=== PATIENT | female | born 1985 | race Caucasian/White ===

== ENCOUNTER 2018-04-09 21:49 | Emergency (ER) | payer MEDICAID, SELFPAY ==
[2018-04-09 21:51] VITALS: BP 115/80; PULSE 77; RESP 15; TEMP 36.6; BMI 26.5
[2018-04-09] MEDS: Diphth,Pertuss(Acell),Tet Vac 0.5 ML Vial IM (23:25)
--- NOTE | 2018-04-10 00:46 | ED.VISSUMM ---
- ER Visit Summary Date of Service: 04/10/18 Chief Complaint: Lip laceration History of Present Illness: The patient is a 32 F presenting for evaluation secondary to a lip laceration. Patient was roller skating she suffered a fall and struck her face on the ground. No loss of consciousness. No numbness weakness visual changes nausea or vomiting. Patient is not on any sort of anticoagulants. Her tetanus status is unknown. Physical Examination: Primary survey: Airway is patent, breath sounds equal bilateral, central peripheral pulses 2+ and symmetric, GCS 15 out of 15. Vitals within normal limits. Secondary survey: General: Well-nourished well-developed no acute distress Head: Normocephalic atraumatic Eyes: PERRLA, EOMI ENT: TMs clear no hemotympanum no drainage, 1 cm laceration to the right lower lip that is on the external surface of the lip does not communicate with the mucosa and does not cross the vermilion border Neck: Nontender full range of motion, no step-offs noted Heart: Regular rate and rhythm no murmurs Lungs: Respirations nondistressed, lung sounds clear to auscultation bilaterally, chest nontender, normal chest excursion bilaterally Abdomen: Soft nontender nondistended normal bowel sounds no palpable abdominal masses Back: Nontender no step-offs noted Extremities: Nontender: Active full range of motion ?4 Skin: Normal color no trauma Neuro: Alert and oriented ?4, GCS 15 out of 15, no lateralizing neurological deficits. Test Results: None indicated Emergency Department Course and Treatment: Patient presented for evaluation secondary to lip laceration. Her tetanus status was updated. Laceration was anesthetized using lidocaine, was irrigated, and then was approximated using 2 simple interrupted 6-0 sutures. Patient was informed on follow-up with primary care in 3-5 days for suture removal. Disposition: Discharge Impression: 1. 1 cm lower lip laceration 2. Laceration repair by ED physician This note was generated with [employer] dictation software. It may contain incorrect words, spelling, and punctuation that were not noted in review of the chart prior to signing ED Disposition - Plan for ED Patient: Disposition: Home or Assisted Living Chief Complaint: Laceration Diagnosis: Lip laceration Instructions: ED Laceration All Referrals: Clemente Park DO [Primary Care Provider] - 3-5 Days suture removal
[2018-04-10 01:01] VITALS: PULSE 88; RESP 16; O2SAT 100
== END 2018-04-10 01:03 | disposition home or self-care (01) ==
PROVIDERS: Emergency Provider Emergency Medicine; Family Provider Student in an Organized Health Care Education/Training Program; PCP Student in an Organized Health Care Education/Training Program
DX: S01.511A Laceration without foreign body of lip, initial encounter (principal); V00.121A Fall from non-in-line roller-skates, initial encounter; Y93.51 Activity, roller skating (inline) and skateboarding; Y92.9 Unspecified place or not applicable; Y99.9 Unspecified external cause status; Z23 Encounter for immunization
CPT/HCPCS: 12011; 90715; 99282

== ENCOUNTER → 2021-04-14 | Outpatient (CLI) | payer MEDICAID, SELFPAY | END | disposition home or self-care (01) | LOC: LABSPEC 14:57 | PROVIDERS: PCP Student in an Organized Health Care Education/Training Program; Referring Provider Physician Assistant; Visit Provider Physician Assistant | DX: Z20.822 Contact with and (suspected) exposure to COVID-19 (principal) | CPT/HCPCS: 87635; U0005; U0003 ==

== ENCOUNTER → 2021-04-27 | Outpatient (CLI) | payer MEDICAID, SELFPAY | END | disposition home or self-care (01) | PROVIDERS: PCP Student in an Organized Health Care Education/Training Program; Referring Provider Physician Assistant; Visit Provider Physician Assistant | DX: Z11.52 Encounter for screening for COVID-19 (principal) | CPT/HCPCS: 87635; U0005; U0003 ==

== ENCOUNTER 2022-10-17 12:30 | Emergency (ER) | payer MEDICAID, SELFPAY ==
[2022-10-17 12:31] VITALS: BP 130/72; PULSE 105; RESP 16; TEMP 36.1; O2SAT 99; BMI 29.7
--- NOTE | 2022-10-17 12:44 | ED.VIS.BACK ---
HPI <DMITRI Bailey - Last Filed: 10/17/22 19:35> History of Present Illness Chief Complaint: Back Narrative Narrative: Patient presenting today with pain in her left lower back that radiates pain and tingling down her left leg into her toes that she has had since last Wednesday. She states that the day before she went [employer], went to [employer], and then went to the gym and did back exercises but denies any injury to her back. On Wednesday she went to urgent care and they told her she had sciatica and put her on prednisone and Flexeril which she states did not help much. She denies any urinary symptoms, saddle paresthesia, and urinary/bowel incontinence. PFSH <DMITRI Bailey - Last Filed: 10/17/22 19:35> [facility] Medical History Encounter for screening for COVID-19 Home Medications etonogestrel 0.12 mg-ethinyl estradiol 0.015 mg/24 hr vaginal ring (NuvaRing) 1 ea VG QMONTH 06/27/17 [History Last Taken Unknown] hydrocodone-acetaminophen 5-325mg 5mg-325mg 1 tab PO Q6H 5 days #20 TABLETS 10/17/22 [Rx Last Taken Unknown] naproxen 500 mg tablet (Naprosyn) 500 mg PO BID PRN pain 2 weeks #28 tabs 10/17/22 [Rx Last Taken Unknown] Allergy/AdvReac Type Severity Reaction Status Date / Time No Known Allergies Allergy Verified 10/17/22 12:33 Social History Smoking Status: Former smoker ROS <DMITRI Bailey - Last Filed: 10/17/22 19:35> ROS ED Constitutional Constitutional ED: Denies chills, fever(s) or sweats Eyes Eyes: Denies blurry vision or diplopia Cardiovascular Cardiovascular: Denies chest pain or palpitations Respiratory/Chest Respiratory/Chest: Denies cough, dyspnea, tachypnea or wheezing Gastrointestinal Gastrointestinal: Denies abdominal pain, nausea or vomiting Genitourinary Genitourinary ED: Denies dysuria, hematuria or urinary urgency Musculoskeletal Musculoskeletal: Reports back pain and myalgias; Denies arthralgias or neck pain Integumentary Denies abscess, Abrasions or rash Neurologic Neurologic: Denies confusion, dizziness or paresthesias Psychiatric Psychiatric: Denies anxiety, depression, suicidal ideation or suicidal thoughts EXAM <DMITRI Bailey - Last Filed: 10/17/22 19:35> Physical Exam Const Vital Signs: 10/17/22 12:31 Temperature 96.9 F L Temperature Source Temporal Pulse Rate 105 H Respiratory Rate 16 Blood Pressure 130/72 H Blood Pressure Mean 91 Pulse Ox 99 Oxygen Delivery Method Room Air Positive well nourished, well developed and no apparent distress General Appearance ED: well developed HEENT Reports normocephalic and head/scalp atraumatic Mouth ED: Yes moist mucous membranes normal Eyes PERRL and EOMs intact bilaterally Neck full ROM and supple Chest Wall inspection of chest normal Resp normal respiratory effort and clear to auscultation bilaterally Cardio regular rate and regular rhythm GI soft to palpation, non-tender, non-distended and no masses Back/Spine normal ROM, normal to inspection and no thoracic nor lumbar tenderness General Back: Negative for CVA tenderness Lumbar Spine / Lower Back: straight leg raise negative bilaterally Extremity normal to inspection and full ROM Neuro oriented x3, CN's II-XII intact bilaterally, moves all extremities, no focal motor deficits and no sensory deficits noted Sensorium / Orientation: awake and alert Motor Exam: strength 5/5 throughout Psych mental status grossly normal and thought process normal Skin no rashes or lesions noted and no wounds <Dr. Jose Black MD - Last Filed: 10/17/22 13:14> Physical Exam Const Vital Signs: 10/17/22 12:31 Temperature 96.9 F L Temperature Source Temporal Pulse Rate 105 H Respiratory Rate 16 Blood Pressure 130/72 H Blood Pressure Mean 91 Pulse Ox 99 Oxygen Delivery Method Room Air MDM <DMITRI Bailey - Last Filed: 10/17/22 19:35> [facility] MDM Narrative Medical decision making narrative: Patient presenting today with pain in her left lower back that radiates down to her left foot. Symptoms are consistent with sciatica. She was on steroids but they have not been helping her pain. I do not feel any imaging is necessary. No symptoms concerning for an epidural abscess or cauda equina syndrome. She will be given pain control and is to follow-up with her PCP as she might need an MRI. She is understanding of this and will be discharged home in stable condition. <Dr. Jose Black MD - Last Filed: 10/17/22 13:14> [facility] Treatment and Re-Evaluation Narrative: Seen and evaluated independently and in conjunction with physician assistant cross country coach. Agree with notes above unless documented otherwise. 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 She did a lot of strenuous exercise with her back, and the symptoms started gradually within an hour or 2 after she left the gym. She was not having pain in the midline. It is on the left side. Denies any bowel or bladder dysfunction. She has not had a bowel movement a couple days but has not had a sensation that she needs to. No saddle anesthesia. Some tingling where the pain radiates down to the left ankle, but not all the time. No weakness. On exam no significant tenderness in the midline, she does have a mild levoscoliosis of the thoracic spine, on my exam she has normal reflexes normal strength normal sensation, and a negative straight leg raise ipsilaterally without reproduction of radicular symptoms and a negative cross straight leg raise without any symptoms with that. Certainly her symptoms are consistent with sciatica, worse when she is sitting. Supportive care for now, and close outpatient follow-up with her PCP, if symptoms persist she may need an MRI. She has been on steroids and they are not helping. Discharge Plan Triage Chief Complaint: Back ED Midlevel Provider: Brenda Hernandez ED Provider: Jose Black Dx/Rx/DC Orders Clinical Impression: Sciatica of left side Instructions: ED Sciatica Prescriptions: New naproxen [Naprosyn] 500 mg tablet 500 mg PO BID PRN (Reason: pain) 14 Days Qty: 28 0RF hydrocodone-acetaminophen 5-325 mg tablet 1 tab PO Q6H 5 Days Qty: 20 0RF No Action etonogestrel-ethinyl estradiol [NuvaRing] 1 EACH ring 1 ea VG QMONTH Primary Care Provider: Clemente Park Referrals: Clemente Park, [Primary Care Provider] - 3-5 Days Activity Restrictions/Additional Instructions: Please follow-up with your doctor Wednesday. Return for any worsening of symptoms. Disposition Disposition: Home, Self Care Discharge Date/Time: 10/17/22 13:21
== END 2022-10-17 13:21 | disposition home or self-care (01) ==
LOC: ED 13:15
PROVIDERS: Emergency Provider Emergency Medicine; PCP Student in an Organized Health Care Education/Training Program; Visit Provider Emergency Medicine
DX: M54.42 Lumbago with sciatica, left side (principal); M41.9 Scoliosis, unspecified; Z87.891 Personal history of nicotine dependence
CPT/HCPCS: 99282

== ENCOUNTER 2024-01-08 20:59 | Emergency (ER) | payer BC, SELFPAY ==
[2024-01-08 21:00] VITALS: BP 128/86; PULSE 100; RESP 15; TEMP 36.3; O2SAT 100; BMI 26.7
--- NOTE | 2024-01-08 21:48 | CT_ITS ---
EXAM: CT ABDOMEN AND PELVIS WITH INTRAVENOUS CONTRAST CLINICAL INDICATION: Abdominal pain -- IV PO Contrast TECHNIQUE: Helically acquired images were obtained of the abdomen and pelvis with intravenous contrast. This CT exam was performed using one or more of the following dose reduction techniques: automated exposure control, adjustment of the mA and/or kV according to patient size, and/or use of iterative reconstruction technique. CONTRAST: Oral and amp; IV Gastrografin and amp; 100mL Isovue-370 RADIATION DOSE: CTDIvol = 11.93 mGy, DLP = 758.06 mGy-cm COMPARISON: No relevant prior studies available. FINDINGS: LOWER THORAX: Unremarkable. Lung bases are clear. No cardiomegaly. No significant pericardial effusion. ABDOMEN: LIVER: Unremarkable. Homogeneous. No focal mass. GALLBLADDER AND BILE DUCTS: Unremarkable. No calcified gallstones. No gallbladder distention or wall edema. No intra- or extrahepatic biliary ductal dilation. PANCREAS: Unremarkable. No focal cystic or solid mass. SPLEEN: Unremarkable. Normal size without focal cystic or solid mass. ADRENALS: Unremarkable. No nodules. KIDNEYS AND URETERS: Unremarkable. Normal renal size and position. No hydronephrosis. STOMACH AND BOWEL: Mild diffuse wall thickening of the sigmoid colon. No stomach or bowel distention. PELVIS: APPENDIX: The appendix is normal. BLADDER: Unremarkable. REPRODUCTIVE: Unremarkable as visualized. No mass. ABDOMEN and PELVIS: INTRAPERITONEAL SPACE: Unremarkable. No ascites or other fluid collection. No free air. BONES/JOINTS: Unremarkable. No suspicious lytic or blastic abnormality. SOFT TISSUES: Unremarkable. No discrete abdominal or pelvic wall hernia. VASCULATURE: Unremarkable. Abdominal aorta is non-dilated. LYMPH NODES: Unremarkable. No enlarged lymph nodes. CT/Abdomen/Pelvis WITH Contrast IMPRESSION: Mild diffuse wall thickening of the sigmoid colon. This may indicate a mild infectious or inflammatory colitis. Electronically Signed: Dean Berman MD at 23:58 EDT ,
[2024-01-08] MEDS: Morphine 4 MG/ML Syringe IV (22:09)
[2024-01-08] MEDS: Ondansetron 4 MG/2 ML Vial IV (22:12)
[2024-01-08] MEDS: 0.9% Normal Saline (1000mL) 1,000 ML 999 ML IV (22:12)
[2024-01-08 22:14] LABS: Absolute Lymphocyte Count 1.17 X10^3/uL (0.83-4.51); Absolute Neutrophil Count 5.5 X10^3/uL (2.0-7.7); Basophil# 0.05 X10^3/uL; Basophil% 0.6 % (0-1); Eosinophil# 0.41 X10^3/uL; Eosinophils% 5.1 % (0-5); Hematocrit 35.5 % (37-47); Hemoglobin 11.7 g/dL (12.0-15.0); Lymphocyte # 1.17 X10^3/ul (0.83-4.51); Lymphocyte % 14.5 % (19-41); Mean Corpuscular Hgb 27.8 pg (27.0-32.0); Mean Corpuscular Volume 84.3 fL (81-99); Mean Platelet Vol. 10.4 fl (6.2-12.0); Monocyte# 0.88 X10^3/uL; Monocyte% 10.9 % (0-10); NRBC Flagged by Analyzer 0 % (0-5); Neutrophil % 67.9 % (47-70); Platelet Count 223 K/mm3 (150-450); RBC Distribution Width CV 13.3 % (11.6-14.6); RBC Distribution Width SD 40.3 fl (35.1-43.9); Red Blood Count 4.21 M/mm3 (4.2-5.4); White Blood Count 8.1 K/mm3 (4.4-11.0)
--- NOTE | 2024-01-08 22:18 | EDS_ITS ---
HPI HPI - GI History of Present Illness Chief Complaint: Abd Pain Informant: patient Abdominal Pain/Flank Pain Onset: Weeks (3) Context: Gradual Onset Timing: Waxes and wanes Quality: Cramping Location: RLQ and LLQ Worsened by: Food Relieved by: Nothing Nausea/Vomiting/Emesis GI Symptom: Positive for Nausea; Negative for Vomiting Diarrhea/Melena/Hematochezia GI Symptom: Positive for Diarrhea and Hematochezia Onset: Weeks (3) Stool Quality: Positive for BRB per rectum Associated Symptoms Associated Symptoms: Positive for Dysuria; Negative for Frequency, Hematuria or Urgency Narrative Narrative: Patient presents with lower abdominal pain and rectal bleeding that has been getting progressively worse over the past 3 weeks. 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 Patient states that her rectal bleeding has been getting progressively worse. Patient states it is bright red blood. Patient admits to some cramping pain over her lower abdomen. Patient states it is worse whenever she eats anything. Patient admits to some nausea but denies any vomiting. Patient admits to some dysuria but denies any frequency or hematuria. Patient admits to some subjective chills but denies any fevers. Patient states she is currently being treated for a vaginal yeast infection. [facility] Medical History Ulcerative colitis Encounter for screening for COVID-19 Home Medications ?Medication ?Instructions ?Recorded ?Last Taken ?Type etonogestrel 0.12 mg-ethinyl 1 ea VG QMONTH 06/27/17 Unknown History estradiol 0.015 mg/24 hr vaginal ring (NuvaRing) hydrocodone-acetaminophen 5-325mg 1 tab PO Q6H 5 days #20 TABLETS 10/17/22 Unknown Rx 5mg-325mg naproxen 500 mg tablet (Naprosyn) 500 mg PO BID PRN pain 2 weeks #28 10/17/22 Unknown Rx tabs gabapentin 300 mg capsule 100 mg PO PRN 01/08/24 Unknown History ibuprofen 600 mg tablet 600 mg PO Q6H PRN PRN pain 01/08/24 Unknown History mesalamine 4 gram/60 mL enema 4 g [place] QHS 01/08/24 Unknown History ciprofloxacin HCl 500 mg tablet 500 mg PO BID #20 TABLETS 01/09/24 Unknown Rx metronidazole 500 mg tablet 500 mg PO Q6H #40 tabs 01/09/24 Unknown Rx Allergy/AdvReac Type Severity Reaction Status Date / Time No Known Allergies Allergy Verified 01/08/24 21:05 Surgical History no surgical history no surgical history Social History Smoking Status: Former smoker ROS ROS ED Constitutional Constitutional ED: Reports chills; Denies fever(s) Eyes Eyes: Denies blurry vision or change in vision ENT ENT ED: Denies rhinorrhea or sore throat Cardiovascular Cardiovascular: Denies chest pain or palpitations Respiratory/Chest Respiratory/Chest: Denies cough or dyspnea Gastrointestinal Gastrointestinal: Reports abdominal pain, diarrhea and nausea; Denies vomiting Genitourinary Genitourinary ED: Reports dysuria; Denies hematuria Musculoskeletal Musculoskeletal: Denies back pain or neck pain Integumentary Denies abscess or rash Neurologic Neurologic: Denies headache(s) or weakness Allergic/Immunologic Allergic/Immunologic ED: Denies mouth swelling or urticaria EXAM Physical Exam Const Vital Signs: 01/08/24 21:00 01/08/24 23:00 Temperature 97.3 F L 98.4 F Temperature Source Temporal Oral Pulse Rate 100 87 Respiratory Rate 15 16 Blood Pressure 128/86 H 117/83 H Blood Pressure Mean 100 94 Pulse Ox 100 98 Oxygen Delivery Method Room Air Room Air Positive well nourished and well developed General Appearance ED: well developed and NAD HEENT Reports moist mucous membranes Neck supple and no JVD Resp normal respiratory effort and clear to auscultation bilaterally Cardio regular rate and regular rhythm GI non-distended Palpation: soft and tender LLQ, RLQ and suprapubic; Negative for guarding or rebound tenderness present Extremity full ROM General Extremety ED: Negative for edema or tenderness General Extremity: Negative for edema Neuro CN's II-XII intact bilaterally, moves all extremities and no sensory deficits noted Sensorium / Orientation: alert Motor Exam: strength 5/5 throughout Psych mental status grossly normal MDM MDM MDM Narrative Medical decision making narrative: Differential diagnosis includes anemia, ulcerative proctitis, colitis, diverticulitis, urinary tract infection, bowel obstruction, perforation, ectopic , ovarian cyst, and viral illness. CBC will be obtained to assess for leukocytosis and anemia. Comprehensive metabolic profile will be obtained to assess for hepatic function, renal function, and electrolyte abnormality. Lipase will be obtained to assess for pancreatitis. Serum hCG will be obtained to assess for . Urinalysis will be obtained to assess for urinary tract infection and hematuria. CT scan of the abdomen pelvis will be obtained to assess for bowel obstruction, perforation, diverticulitis, and ulcerative colitis. Lab Data Attestation: I reviewed the patient's lab results. Lab results narrative: CBC was reviewed. Hemoglobin was stable at 11.7 and hematocrit was 35.5. Comprehensive metabolic profile was reviewed and was within normal limits. Lipase was reviewed and was slightly elevated at 93. Serum hCG was reviewed and was negative. Labs: Laboratory Results - last 24 hr 01/08/24 01/08/24 21:43 22:50 WBC 8.1 RBC 4.21 Hgb 11.7 L Hct 35.5 L MCV 84.3 MCH 27.8 MCHC 33.0 RDW Std Deviation 40.3 RDW Coeff of Rod 13.3 Plt Count 223 MPV 10.4 Immature Gran % (Auto) 1.000 H Neut % (Auto) 67.9 Lymph % (Auto) 14.5 L [place] % (Auto) 10.9 H Eos % (Auto) 5.1 H Baso % (Auto) 0.6 Absolute Neuts (auto) 5.5 Absolute Lymphs (auto) 1.17 Nucleated RBC % 0 Sodium 141 Potassium 3.6 Chloride 110 H Carbon Dioxide 26.0 Anion Gap 5 BUN 21 H Creatinine 0.92 Estim Creat Clear Calc 76.26 Est GFR (MDRD) Af Amer 87 Est GFR (MDRD) Non-Af 72 BUN/Creatinine Ratio 22.9 H Glucose 156 H Calcium 9.0 Total Bilirubin 0.30 AST 20 ALT 25 Alkaline Phosphatase 59 Total Protein 6.7 Albumin 3.3 Globulin 3.4 Albumin/Globulin Ratio 1.0 Lipase 93 H Serum , Qual NEGATIVE Radiography Diagnostic Testing: Clinical Impression(s) from Imaging Studies Abdomen/Pelvis CT 01/08/24 21:48 IMPRESSION: Mild diffuse wall thickening of the sigmoid colon. This may indicate a mild infectious or inflammatory colitis. Electronically Signed: Dean Berman MD at 23:58 EDT , CT scan of the abdomen pelvis was obtained. There is mild diffuse wall thickening of the sigmoid colon. This could be an infectious or inflammatory colitis. There is no other acute abnormality noted. This was interpreted by the radiologist and was also independently reviewed by myself. Treatment and Re-Evaluation :: Patient was given IV fluids, morphine, and Zofran. Patient was advised of her findings. Patient was given prescription for Cipro and Flagyl. Patient was instructed to avoid alcohol while taking Flagyl. Patient was instructed to follow-up with her primary care physician in 5 to 7 days. Patient was also instructed to follow-up with her assembly machine offbearer. Patient was instructed to return if worse in any way. Patient understood and was agreeable with the plan. All questions were answered. Discharge Plan Triage Chief Complaint: Abd Pain ED Provider: Balaji Quinones Dx/Rx/DC Orders Clinical Impression: Ulcerative colitis, Abdominal pain Instructions: ED Ulcerative Colitis Prescriptions: New metronidazole 500 mg tablet 500 mg PO Q6H Qty: 40 0RF ciprofloxacin HCl 500 mg tablet 500 mg PO BID Qty: 20 0RF No Action etonogestrel-ethinyl estradiol [NuvaRing] 1 EACH ring 1 ea VG QMONTH naproxen [Naprosyn] 500 mg tablet 500 mg PO BID PRN (Reason: pain) 14 Days Qty: 28 0RF hydrocodone-acetaminophen 5-325 mg tablet 1 tab PO Q6H 5 Days Qty: 20 0RF mesalamine 4 gram/60 mL enema 4 g [place] QHS gabapentin 300 mg capsule 100 mg PO PRN ibuprofen 600 mg tablet 600 mg PO Q6H PRN PRN (Reason: pain) Primary Care Provider: Clemente Park Referrals: Clemente Park DO [Primary Care Provider] - 5-7 Days Activity Restrictions/Additional Instructions: Do not drink any alcohol while taking the antibiotics. Follow-up with your assembly machine offbearer after completing the antibiotics. Print Language: Croatian Disposition Disposition: Home, Self Care
[2024-01-08 22:30] LABS: AST(SGOT) 20 U/L (15-37); Alanine Aminotransfer ALT/SGPT 25 U/L (13-56); Albumin, Serum 3.3 g/dL (3.2-5.0); Alkaline Phosphatase 59 U/L (45-117); Anion Gap 5 (5-15); BUN 21 mg/dL (7-18); BUN/Creat Ratio 22.9 RATIO (10-20); Chloride 110 mmol/L (98-107); Creatinine, Serum 0.92 mg/dL (0.55-1.02); EST Glomerular Filtration Rate 72 mL/min (>60); Est Glom Filt Rate - Afr Amer 87 mL/min (>60); Estimated Creatinine Clearance 76.26 ml/min; Globulin 3.4 g/dL (2.2-4.2); Glucose 156 mg/dL (74-106); Lipase 93 U/L (13-75); Potassium 3.6 mmol/L (3.5-5.1); Protein, Total 6.7 g/dL (6.4-8.2); Sodium Level 141 mmol/L (136-145)
[2024-01-08 23:00] VITALS: BP 117/83; PULSE 87; RESP 16; TEMP 36.9; O2SAT 98
[2024-01-08 23:18] LABS: Internal QC Validated? YES +Cl - CLEAR BKGD; Pregnancy, Serum, hCG Quali. NEGATIVE Negative; Record Kit Lot#, Serum Preg. 772476
[2024-01-09 00:09] LABS: Mucous, Urine 0 SEEN /hpf (<or=2+); Red Blood Cells-Urine 0 SEEN /hpf (0-5); White Blood Cells 0 SEEN /hpf (0-5)
[2024-01-09] MEDS: metroNIDAZOLE 500 MG Tablet PO (00:24)
[2024-01-09] MEDS: Ciprofloxacin 500 MG Tablet PO (00:24)
[2024-01-09 00:27] LABS: Color, Urine Yellow (Yellow); Glucose, Dipstick Normal (Normal); Ketone-Dipstick Negative (Negative); Leukocyte Esterase-Dipstick 500 /ul (Negative); Nitrite-Dipstick Negative (Negative); Occult Blood-Urine Negative /ul (Negative); Protein-Dipstick Negative (Negative); Specific Gravity, Urine 1.015 (1.002-1.030); Urine Bilirubin Dipstick Negative (Negative); Urine Clarity Clear (Clear); Urine Urobilinogen Normal (Normal)
[2024-01-09 00:28] VITALS: BP 115/78; PULSE 77; RESP 16; TEMP 36.7; O2SAT 98
[2024-01-09 01:05] LABS: Bacteria RARE /hpf (None Seen); Squamous Epithelial Cells - UA 5-10 SEEN /hpf (5-10)
== END 2024-01-09 00:30 | disposition home or self-care (01) ==
PROVIDERS: Emergency Provider Emergency Medicine; PCP Student in an Organized Health Care Education/Training Program; Visit Provider Emergency Medicine
DX: K51.911 Ulcerative colitis, unspecified with rectal bleeding (principal); R10.31 Right lower quadrant pain; R10.32 Left lower quadrant pain; Z79.899 Other long term (current) drug therapy; Z87.891 Personal history of nicotine dependence
CPT/HCPCS: 74177; 80053; 81001; 83690; 84703; 85025; 96361; 96374; 96375; 99284; J7030; Q9967; A4216; J2405

== ENCOUNTER 2025-06-12 12:30 | Emergency (ER) | payer BC, SELFPAY ==
[2025-06-12 12:31] VITALS: BP 133/95; PULSE 100; RESP 16; TEMP 36.9; O2SAT 99; BMI 28.2
--- NOTE | 2025-06-12 15:04 | EDS_ITS ---
HPI History of Present Illness Chief Complaint: Back Detail of Chief Complaint: Bilateral low back pain, greater left Informant: patient Onset/Context/Timing Onset: Weeks (1 week) Context: Sudden Onset Chronic pain exacerbated by: Working out Injury: lifting, twisting, bending, direct trauma, fall, assault and repetitive motion Timing: Continuous Quality: Dull and Aching Location: Lumbar Current Severity: Mild Maximum Severity: Severe Worsened by: improves with Movement, Bending and Lifting Relieved by: Nothing Associated Symptoms Associated Symptoms: - (No saddle anesthesia or paresthesia. No recent dental procedure. No foot drop. No buckling of her knees going up or down steps.); Negative for Numbness, Tingling, Radiation to Right Leg, Radiation to Left Leg, Fever, Abdominal Pain, Dysuria, Unable to Ambulate, Unable to Transfer, Urinary Retention, Urinary Incontinence, Constipation or Fecal Incontinence Narrative Narrative: Patient is a 40-year-old female who has history of back pain on gabapentin. She has history of sciatica. She has been working out recently and walking. She denies bowel or bladder dysfunction. Denies saddle paresthesia or anesthesia. Denies foot drop. [place] buckling of her knees going up or down steps. She has no history of recent fever or chills or infectious symptoms. She denies urologic symptoms. Prior similar symptoms: Yes and With Prior Back Pain Recent Illness/Hospitalization: No [facility] Medical History Ulcerative colitis Encounter for screening for COVID-19 Home Medications ?Medication ?Instructions ?Recorded ?Last Taken ?Type etonogestrel 0.12 mg-ethinyl 1 ea VG QMONTH 06/27/17 U nknown History estradiol 0.015 mg/24 hr vaginal ring (NuvaRing) hydrocodone-acetaminophen 5-325mg 1 tab PO Q6H 5 days #20 TABLETS 10/17/22 Unknown Rx 5mg-325mg naproxen 500 mg tablet (Naprosyn) 500 mg PO BID PRN pa in 2 weeks #28 10/17/22 Unknown Rx tabs gabapentin 300 mg capsule 100 mg PO PRN 01/08/24 Unkno wn History ibuprofen 600 mg tablet 600 mg PO Q6H PRN PRN pain 0 01/08/24 Unknown History mesalamine 4 gram/60 mL enema 4 g WI QHS 01/08/24 Unkn own History ciprofloxacin HCl 500 mg tablet 500 mg PO BID #20 TABL ETS 01/09/24 Unknown Rx metronidazole 500 mg tablet 500 mg PO Q6H #40 tabs Unknown Rx hydrocodone-acetaminophen 5-325mg 1 tab PO Q6H PRN PRN Pain 3 days 06/12/25 Unknown Rx 5mg-325mg #10 TABLETS Allergy/AdvReac Type Severity Reaction Status Date / Time No Known Allergies Allergy Verified 06/12/25 12:33 Social History Smoking Status: Former smoker ROS ROS ED Constitutional Constitutional ED: Denies chills, fever(s), subjective or sweats Eyes Eyes: Denies blurry vision or change in vision Cardiovascular Cardiovascular: Denies chest pain or palpitations Respiratory/Chest Respiratory/Chest: Denies dyspnea or dyspnea on exertion Gastrointestinal Gastrointestinal: Denies abdominal pain, constipation, diarrhea, nausea or vomiting Genitourinary Genitourinary ED: Denies dysuria, hematuria or urinary frequency Musculoskeletal Musculoskeletal: Reports back pain; Denies arthralgias or myalgias Integumentary Denies rash Neurologic Neurologic: Denies paresthesias or weakness Hematologic/Lymphatic Hematologic/Lymphatic: Denies easy bleeding or easy bruising EXAM Physical Exam Const Vital Signs: 06/12/25 12:31 Temperature 98.4 F Temperature Source Oral Pulse Rate 100 Respiratory Rate 16 Blood Pressure 133/95 H Blood Pressure Mean 107 Pulse Ox 99 Oxygen Delivery Method Room Air Positive well nourished and well developed General Appearance ED: well developed and NAD; Negative for pallor HEENT Reports moist mucous membranes HEENT Narrative: Head is atraumatic normocephalic. Ears normal. Nares patent. Eyes PERRL and EOMs intact bilaterally General Eye ED: Negative for pale conjunctiva or scleral icterus Neck no lymphadenopathy, supple and no JVD Resp normal respiratory effort Cardio regular rate, regular rhythm, S1 normal heart sound, S2 normal heart sound and no murmurs GI normal to inspection, nondistended, normoactive bowel sounds, soft to palpation, non-tender, non-distended and no masses Back/Spine normal to inspection; Negative for no thoracic nor lumbar tenderness Back/Spine Narrative: Bilateral paralumbar discomfort. There is no midline pain. Straight leg test is negative bilaterally. L3-S1 dermatome sensation normal. EHL intact bilaterally. DP pulse 2+ and symmetric. Cervical Spine: Negative for cervical spine tenderness Thoracic Spine / Upper Back: paraspinal muscle tenderness Lumbar Spine / Lower Back: straight leg raise negative bilaterally Extremity normal to inspection and no clubbing, cyanosis or edema Neuro oriented x3 and no sensory deficits noted Motor Exam: strength 5/5 throughout Deep Tendon Reflexes: Rt Patellar (L4): 2+, Lt Patellar (L4): 2+, Rt Ankle (S1): 2+ and Lt Ankle (S1): 2+ Deep Tendon Reflexes Back: Rt Patellar (L4): 2+, Lt Patellar (L4): 2+, Rt Ankle (S1): 2+ and Lt Ankle (S1): 2+ Plantar Reflex: Downgoing: bilateral (No clonus at the ankles.) Psych mental status grossly normal Skin no rashes or lesions noted and no wounds General Skin Exam: Negative for jaundice or pallor Lesions: lesion noted Rashes: rashes noted MDM MDM MDM Narrative Medical decision making narrative: Patient presents with back pain. History and physical not consistent for pathologic fracture, cauda equina syndrome, spontaneous epidural hematoma or epidural abscess. Patient's history and physical is consistent with muscular pain. Since she drove herself to the emergency room she was treated with 15 mg of ketorolac IV push. She had no improvement. She discharged to home with prescription for hydrocodone. She was instructed not to apply heat and not to work out for the next week. Patient states there is no one here to drive her home therefore opiate analgesics were not given. She has taken Flexeril with no improvement. In my opinion there is no indication for imaging or laboratory testing. History & Record Review Additional record(s) reviewed:: Prior ED visit and Prior labs Discharge Plan Triage Chief Complaint: Back ED Provider: Jasen Wang Dx/Rx/DC Orders Clinical Impression: Acute lumbosacral myofascial strain, Elevated blood pressure reading without diagnosis of hypertension Instructions: ED Back Sprain/Strain Prescriptions: New hydrocodone-acetaminophen 5-325 mg tablet 1 tab PO Q6H PRN PRN (Reason: Pain) 3 Days Qty: 10 0RF No Action etonogestrel-ethinyl estradiol [NuvaRing] 1 EACH ring 1 ea VG QMONTH naproxen [Naprosyn] 500 mg tablet 500 mg PO BID PRN (Reason: pain) 14 Days Qty: 28 0RF hydrocodone-acetaminophen 5-325 mg tablet 1 tab PO Q6H 5 Days Qty: 20 0RF mesalamine 4 gram/60 mL enema 4 g WI QHS gabapentin 300 mg capsule 100 mg PO PRN ibuprofen 600 mg tablet 600 mg PO Q6H PRN PRN (Reason: pain) metronidazole 500 mg tablet 500 mg PO Q6H Qty: 40 0RF ciprofloxacin HCl 500 mg tablet 500 mg PO BID Qty: 20 0RF Primary Care Provider: Clemente Park Referrals: Clemente Park, [Primary Care Provider, Medical] - 3-5 Days if not improving Activity Restrictions/Additional Instructions: 1. Apply ice 6-8 times a day. 2. Do not apply heat for the next week. 3. Take either 4 ibuprofen tablets every 8 hours or 2 Aleve tablets every 12 hours for next 3 to 5 days in addition to the pain medicine you were prescribed Print Language: Faroese Disposition Disposition: Home, Self Care
[2025-06-12 15:24] VITALS: BP 125/81; PULSE 78; RESP 15; TEMP 36.9; O2SAT 100
== END 2025-06-12 15:26 | disposition home or self-care (01) ==
PROVIDERS: Emergency Provider Emergency Medicine; PCP Student in an Organized Health Care Education/Training Program; Visit Provider Emergency Medicine
DX: S39.012A Strain of muscle, fascia and tendon of lower back, initial encounter (principal); R03.0 Elevated blood-pressure reading, without diagnosis of hypertension; G89.29 Other chronic pain; Z87.891 Personal history of nicotine dependence; Z79.899 Other long term (current) drug therapy; X58.XXXA Exposure to other specified factors, initial encounter; Y93.89 Activity, other specified
CPT/HCPCS: 96374; 99283; A4216